=== PATIENT | male | born 1960 | race African-American/Black ===

== ENCOUNTER 2019-08-29 12:01 | Emergency (ER) | payer MEDICAID ==
[~2019-08-29] VITALS: Ht 190.5 cm; Wt 111.1 kg
[2019-08-29 15:44] VITALS: BP 151/82
== END 2019-08-29 15:47 | disposition home or self-care (01) ==
LOC: ER 12:16
DX: S22.080A Wedge compression fracture of T11-T12 vertebra, initial encounter for closed fracture (principal); W19.XXXA Unspecified fall, initial encounter; Y93.89 Activity, other specified; Y99.8 Other external cause status; Y92.89 Other specified places as the place of occurrence of the external cause
CPT/HCPCS: 72100